=== PATIENT | male | born 1975 | race Caucasian/White ===

== ENCOUNTER 2018-06-01 13:36 | Emergency (ER) | payer OTHER ==
[~2018-06-01] VITALS: Ht 165.1 cm; Wt 69.8 kg
[2018-06-01 14:09] LABS: ABSOLUTE NEUTROPHILS 6.4 thou/uL (1.4-8.2); BASOPHILS 0.6 % (0.0-2.0); EOSINOPHILS 0.7 % (0.0-3.0); HEMATOCRIT 44.3 % (42.0-52.0); HEMOGLOBIN 15.6 gm/dL (14.0-18.0); LYMPHOCYTES 20.3 % (24.0-44.0); MCH 32.1 pg (26.0-34.0); MCHC 35.2 g/dL (28.0-37.0); MONOCYTES 7.4 % (1.0-8.0); PLATELET COUNT 298 thou/uL (150-400); RBC 4.87 mil/uL (4.50-6.00); RDW 12.3 % (10.5-14.5)
[2018-06-01 14:28] LABS: ANION GAP 8 mmol/L (7-16); BUN 16 mg/dL (7-18); CALCIUM 9.2 mg/dL (8.5-10.1); CHLORIDE 102 mmol/L (98-107); CO2 29 mmol/L (21-32); CREATININE 0.7 mg/dL (0.7-1.3); GLUCOSE 98 mg/dL (74-106); POTASSIUM 4.1 mmol/L (3.5-5.1)
[2018-06-01 14:29] LABS: SODIUM 139 mmol/L (136-145)
[2018-06-01 14:37] LABS: TROPONIN-I <0.06 ng/mL (<0.06)
[2018-06-01] MEDS ORDERED: ANTIVERT25 MG PO (15:52)
[2018-06-01 16:19] VITALS: BP 123/80
--- NOTE | 2018-06-02 10:43 | EKG ---
[facility] [place] [place] [address] ELECTROCARDIOGRAM REPORT Name: GLENISEULALIA Room #: DEP ALEAH Garcia#: [id number] Admission: 06/01/18 Attend Phys: Discharge: 06/01/18 Date of : 71 Report #: [id number] THIS REPORT FOR: //name// [facility] ED Test Date: 2018-06-01 Test Time: 13:45:52 Pat Name: EULALIA GALVIN Department: Room: Gender: M [employer]: : 1975 Requested By: Jose Silveira Order Number: [id number] MD: Jesus Haney Measurements Intervals Blanket Rate: 80 P: 64 SC: 122 QRS: 32 QRSD: 81 T: -5 QT: 362 QTc: 418 Interpretive Statements Sinus rhythm Borderline T abnormalities, inferior leads No previous ECG available for comparison Electronically Signed On 06-02-2018 10:42:50 GENERATION MANAGER by Jesus Haney [email or web address] <ELECTRONICALLY SIGNED> By: Jesus Haney MD, [facility] 06/02/18 1042 1345 1345 Jesus Haney MD, FACC /EPI
== END 2018-06-01 16:20 | disposition home or self-care (01) ==
LOC: ER 13:36
PROVIDERS: Emergency Medicine
DX: R07.89 Other chest pain (principal); R42 Dizziness and giddiness